=== PATIENT | female | born 1960 | race Caucasian/White ===

== ENCOUNTER 2018-03-27 16:55 | Emergency (ER) | payer OTHER ==
[~2018-03-27] VITALS: Ht 157.5 cm; Wt 54.9 kg
[2018-03-27 17:11] VITALS: BP 118/69
--- NOTE | 2018-03-27 17:17 | NUR ---
PT AMBULATED TO ER BED 11.
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
[2018-03-27] MEDS ORDERED: LIDOCAINE/PRILOCAINE 2.5% 5 GM TUBE TP ONE (17:50)
[2018-03-27] MEDS ORDERED: ACETAMINOPHEN EXTRA STRENGTH 500 MG TAB PO ONE (17:55)
[2018-03-27] MEDS ORDERED: LIDOCAINE/EPI 1% 1:100000 20 ML VIAL INJ ONE (19:00)
[2018-03-27] MEDS ORDERED: LIDOCAINE/EPI 2% 1:100000 20 ML VIAL INJ ONE (19:04)
--- NOTE | 2018-03-27 19:15 | NUR ---
RECEIVED REPORT FROM [facility]. TRANSFER OF CARE AT THIS TIME.
--- NOTE | 2018-03-27 19:15 | NUR ---
RECEIVED REPORT FROM [facility]. TRANSFER OF CARE AT THIS TIME.
--- NOTE | 2018-03-27 19:15 | NUR ---
Jeannie rangel in [facility] - 03/27/18 at 1945 by EMERITA RECEIVED REPORT FROM [facility] TRANSFER OF CARE AT THIS TIME.
--- NOTE | 2018-03-27 19:20 | NUR ---
LIDOCAINE WITH EPI 1:100,[address] MILLER SUB Q, 1 ML. NADR.
[2018-03-27 19:45] VITALS: BP 121/72
--- NOTE | 2018-03-27 19:45 | NUR ---
Note bethanyone in [facility] - 03/27/18 at 1945 by [email or web address] Patient discharged with v/s stable. Written and verbal after care instructions given and explained. Patient alert, oriented and verbalized understanding of instructions. Ambulatory with steady gait. All questions addressed prior to discharge. ID band removed. Patient advised to follow up with PMD. Rx of BACITRACIN 500UNIT/G given. Patient educated on indication of medication including possible reaction and side effects. Opportunity to ask questions provided and answered.
== END 2018-03-27 19:45 | disposition home or self-care (01) ==
LOC: MED 16:55
DX: S01.01XA Laceration without foreign body of scalp, initial encounter (principal); W20.8XXA Other cause of strike by thrown, projected or falling object, initial encounter; Y93.89 Activity, other specified; Y92.89 Other specified places as the place of occurrence of the external cause; Y99.8 Other external cause status
CPT/HCPCS: 12001; 90471; 90715; 99283; J2001